=== PATIENT | female | born 1985 | race Caucasian/White ===

== ENCOUNTER 2017-01-21 09:57 | Outpatient (CLI) | payer BC ==
[2017-01-21 10:16] LABS: EOSINOPHILS % 3.6 % (0.0-6.8); MEAN CORPUSCULAR VOLUME 95.2 fl (80.0-100.0); MONOCYTES % 5.5 % (0.0-11.0); NEUTROPHILS # 6.3 # k/uL (1.4-7.7)
[2017-01-21 10:39] LABS: eGFR (African) > 60; eGFR (Non-African) > 60
== END 2017-01-21 10:00 ==
LOC: LAB 09:57
PROVIDERS: ATTEND Physician Assistant
DX: F41.9 Anxiety disorder, unspecified (principal)
CPT/HCPCS: 36415; 80053; 84439; 84443; 84481; 85025

== ENCOUNTER 2017-01-30 10:19 | Outpatient (CLI) | payer BC | END 2017-01-30 10:20 | LOC: LABRHC 10:19 | PROVIDERS: ATTEND Physician Assistant | DX: J02.9 Acute pharyngitis, unspecified (principal) | CPT/HCPCS: 87070 ==

== ENCOUNTER 2017-09-09 10:52 | Outpatient (CLI) | payer BC ==
[2017-09-09 11:04] LABS: BASOPHILS % 0.6 (0.0-1.5); MEAN CORPUSCULAR HEMOGLOBIN 32.9 pg (28.0-34.0); MEAN CORPUSCULAR VOLUME 101.8 fl (80.0-100.0); MONOCYTES % 4.7 % (0.0-11.0); NEUTROPHILS # 2.9 # k/uL (1.4-7.7)
[2017-09-09 11:48] LABS: eGFR (Non-African) > 60
== END 2017-09-09 10:53 ==
LOC: LAB 10:52
PROVIDERS: ATTEND Physician Assistant
DX: R53.83 Other fatigue (principal)
CPT/HCPCS: 36415; 80053; 82652; 84439; 84443; 84481; 85025